=== PATIENT | male | born 1950 | race Caucasian/White ===

== ENCOUNTER 2017-08-20 09:03 | Outpatient (CLI) | payer BC ==
--- NOTE | 2017-08-20 14:46 | XRAY Report ---
COMPLETE CERVICAL SPINE: 08/20/2017 CLINICAL INDICATION: Mass. COMPARISON: CT 08/27/2011. FINDINGS: AP, lateral, oblique, odontoid views of the cervical spine demonstrate moderate degenerati ve disk and facet disease. There is no evidence of fracture or subluxation. The prevertebral soft t issues appear unremarkable. No definite mass lesion is identified. IMPRESSION: MODERATE DEGENERATIVE CHANGES. CONSIDER MRI FOR FURTHER EVALUATION OF A SOFT TISSUE ABN ORMALITY. JOB #: [id number] EXT JOB #:[id number]
== END 2017-08-20 09:04 | disposition home or self-care (01) ==
LOC: DI.S 09:03
PROVIDERS: ATTEND Nurse Practitioner Family
DX: M50.30 Other cervical disc degeneration, unspecified cervical region (principal); M47.892 Other spondylosis, cervical region
CPT/HCPCS: 72050